=== PATIENT | female | born 1975 | race Two or more races ===

== ENCOUNTER → 2023-05-23 | Outpatient (CLI) | payer SELFPAY ==
--- NOTE | 2023-05-23 16:30 | LES_PTH ---
PATIENT: ARTHUR CARLSON LOC: [facility] U#:[id number] AGE/SX: 47/F ROOM: RE05/23/[address]: Dr. Phu Pierce MD : 1975 BED: DIS: 05/23/2023 SPEC #: [id number] RECD: 05/23/23 17:23 STATUS: ELYSSA MANUEL #: [id number] MARQUIS: 05/23/23 16:[address]: Phu Pierce DEPT: SURGICAL PATHOLOGY RECD BY: Aria Hoang Tissues: Skin of eyelid, NOS Procedures: Surgery Specimen Level IV HEADER OPERATION: RLL neoplasm biopsy PRE-OP DIAGNOSIS: Neoplasm of eyelid TISSUE SUBMITTED: Right lower eyelid MICROSCOPIC DIAGNOSIS Right lower eyelid lesion, biopsy: Basal cell carcinoma. Note: The lesion extends to the peripheral margins of the biopsy. Clinical correlation is suggested. AM:tabby 05/27/2023 MICROSCOPIC DESCRIPTION Slides are reviewed. GROSS DESCRIPTION Received in fixative is one container labeled with the patient's name and designated right lower lid. The specimen consists of a single irregular fragment of light woods soft tissue measuring 0.2 x 0.1 x <0.1 cm. The specimen is totally submitted in one cassette. / AM:tabby 05/26/2023 TC:0 CPT: 37960
== END | disposition home or self-care (01) ==
PROVIDERS: Visit Provider Ophthalmology
DX: D49.2 Neoplasm of unspecified behavior of bone, soft tissue, and skin (principal)
CPT/HCPCS: 88305